=== PATIENT | female | born 1995 ===

== ENCOUNTER 2023-10-27 01:00 | Inpatient (IN) | payer MEDICAID ==
[2023-10-27] MEDS ORDERED: Sodium Chloride 0.9% 2.5 ML Syringe FLUSH PRN (03:11)
[2023-10-27] MEDS ORDERED: Lidocaine 1% 50 ML MDV INJECT PRN (03:11)
[2023-10-27] MEDS ORDERED: Tranexamic Acid IN NACL,ISO-OS 1,000 MG in Premix Bag 1 BAG IV PRN ×2 (03:11)
[2023-10-27] MEDS ORDERED: Water For Irrigation,Sterile 1,000 ML Container IRR PRN (03:11)
[2023-10-27] MEDS ORDERED: Sodium Chloride 0.9% 10 ML Syringe FLUSH PRN (03:11)
[2023-10-27] MEDS ORDERED: Nalbuphine 10 MG/0.5 ML Syringe IVPUSH PRN (03:11)
[2023-10-27] MEDS ORDERED: Terbutaline 1 MG/ML SDV SUBCUT PRN (03:11)
[2023-10-27] MEDS ORDERED: Carboprost Tromethamine 250 MCG/1 mL Vial IM PRN (03:11)
[2023-10-27] MEDS ORDERED: Sodium Chloride 0.9% 20 ML SDV IV PRN (03:11)
[2023-10-27] MEDS ORDERED: Methylergonovine 0.2 MG/1 ML Amp IM PRN (03:11)
[2023-10-27] MEDS ORDERED: Misoprostol 200 MCG Tab PO PRN (03:11)
[2023-10-27] MEDS ORDERED: Oxytocin/0.9 % Sodium Chloride 30 UNIT/500 ML BAG IV SCH ×2 (03:15)
[2023-10-27 04:22] LABS: HEMATOCRIT 33.7 % (37.0-47.0); HEMOGLOBIN 10.9 g/dL (12.0-16.0); MEAN CORPUSCULAR HEMOGLOBIN 27.5 pg (28.0-32.0); MEAN CORPUSCULAR HGB CONC 32.3 g/dL (32.0-36.0); MEAN CORPUSCULAR VOLUME 84.9 fL (83.0-99.0); MEAN PLATELET VOLUME 12.3 fL (9.4-12.3); PLATELET COUNT,PLT 318 K/uL (150-400); RED BLOOD CELL COUNT 3.97 M/uL (4.10-5.30); WHITE BLOOD CELL COUNT,WBC 11.01 K/uL (3.9-11.3)
[2023-10-27] MEDS: Lactated Ringers 1,000 ML IV SCH ×2 (05:26→09:00)
[2023-10-27] MEDS ORDERED: Bupivacaine 0.25% 10 ML SDV ONE (07:23)
[2023-10-27] MEDS ORDERED: Ropivacaine HCl/PF 200 ML ONE (07:23)
[2023-10-27] MEDS ORDERED: Phenylephrine HCl 0.5 MG/5 ML AMP ONE ×2 (07:23→16:51)
[2023-10-27] MEDS ORDERED: dexmedeTOMIDine HCl 200 MCG/2 ML SDV ONE (07:23)
[2023-10-27] MEDS ORDERED: ePHEDrine 50 MG/ML SDV IVPUSH PRN ×2 (07:42)
[2023-10-27] MEDS ORDERED: Phenylephrine HCl 0.5 MG/5 ML AMP IVPUSH PRN (07:42)
[2023-10-27] MEDS ORDERED: Ropivacaine HCl/PF 400 MG in Premix Bag 1 BAG EPIDUR SCH (07:45)
[2023-10-27] MEDS ORDERED: Midazolam 1 MG/ML 2 ML SDV ONE (16:22)
[2023-10-27] MEDS ORDERED: Oxytocin 10 Units/1 ML SDV ONE (16:31)
[2023-10-27] MEDS ORDERED: Nitroglycerin/D5W 25 MG/250 ML BOTTLE ONE (16:34)
[2023-10-27] MEDS ORDERED: Azithromycin 500 MG Vial ONE (16:35)
[2023-10-27] MEDS ORDERED: Benzocaine/Menthol 20%-0.5% Spray 78 GM Cannister TOP PRN (17:03)
[2023-10-27] MEDS ORDERED: Lanolin 100% Cream 7 GM Tube TOP PRN (17:03)
[2023-10-27] MEDS ORDERED: Witch Hazel Medicated Pads 40/Jar TOP PRN (17:03)
[2023-10-27] MEDS ORDERED: oxyCODONE 5 MG Tab PO PRN (17:03)
[2023-10-27] MEDS ORDERED: Docusate Sodium 100 MG Cap PO PRN (17:03)
[2023-10-27 17:10] LABS: PH,UMBILICAL ARTERIAL 7.146 (7.18-7.38); PH,UMBILICAL VENOUS 7.339 (7.25-7.45)
[2023-10-27] MEDS: Ibuprofen 800 MG Tab PO PRN (21:02)
[2023-10-27] MEDS: Clindamycin Phosphate in D5W 600 MG in Premix Bag 1 BAG IV SCH ×4 (23:20→23:27)
[2023-10-28] MEDS: Acetaminophen 500 MG Tab PO PRN ×4 (00:27→19:49)
[2023-10-28] MEDS: Clindamycin Phosphate in D5W 300 MG in Premix Bag 1 BAG IV SCH ×6 (00:52→08:24)
[2023-10-28] MEDS: Ibuprofen 800 MG Tab PO PRN ×3 (03:29→17:10)
[2023-10-28] MEDS: Clindamycin Phosphate in D5W 600 MG in Premix Bag 1 BAG IV SCH ×2 (05:00)
[2023-10-28 06:28] LABS: HEMATOCRIT 24.8 % (37.0-47.0)
[2023-10-28] MEDS ORDERED: Iron Polysaccharides Complex 150 MG Cap PO SCH (09:00)
[2023-10-28] MEDS ORDERED: Clindamycin Phosphate in D5W 300 MG in Premix Bag 1 BAG IV ONE ×2 (17:00)
[2023-10-28] MEDS ORDERED: Clindamycin Phosphate in D5W 600 MG in Premix Bag 1 BAG IV ONE ×2 (17:00)
== END 2023-10-28 21:05 | disposition home or self-care (01) | DRG 807 ==
LOC: MW.OBCHECK 01:00 → MW.OB 01:01 → MW.OBCHECK 03:44 → MW.OB 03:44 → OBSVTOIN 17:03 → MW.OB 21:18
PROVIDERS: ADMIT Obstetrics & Gynecology; ATTEND Obstetrics & Gynecology
PROC: 10D17Z9 Manual Extraction of Products of Conception, Retained, Via Natural or Artificial Opening (ICD-10-PCS; 2023-10-27)
PROC: 3E0R3BZ Introduction of Anesthetic Agent into Spinal Canal, Percutaneous Approach (ICD-10-PCS; 2023-10-27)
PROC: 00HU33Z Insertion of Infusion Device into Spinal Canal, Percutaneous Approach (ICD-10-PCS; 2023-10-27)
PROC: 0UQMXZZ Repair Vulva, External Approach (ICD-10-PCS; 2023-10-27)
PROC: 10E0XZZ Delivery of Products of Conception, External Approach (ICD-10-PCS; principal; 2023-10-27 16:45)
DX: O13.4 Gestational [pregnancy-induced] hypertension without significant proteinuria, complicating childbirth (principal); Z37.0 Single live birth; O42.02 Full-term premature rupture of membranes, onset of labor within 24 hours of rupture; O73.1 Retained portions of placenta and membranes, without hemorrhage; O69.81X0 Labor and delivery complicated by cord around neck, without compression, not applicable or unspecified; O70.0 First degree perineal laceration during delivery; Z3A.39 39 weeks gestation of pregnancy; Z88.0 Allergy status to penicillin
CPT/HCPCS: 36415; 51702; 59025; 59409; 82803; 84112; 85014; 85018; 85027; 86592; 86850; 86900; 86901; A9270-GY; J0456; J0736; J2250; J2300; J2305; J2371; J2590; J2795; J3490; J7120